=== PATIENT | female | born 1970 | race Caucasian/White ===

== ENCOUNTER 2018-05-24 09:00 | Outpatient (RCR) | payer BC, SELFPAY | END 2018-06-22 08:34 | disposition home or self-care (01) | LOC: PT 09:00 | PROVIDERS: Visit Provider Family Medicine | DX: M79.7 Fibromyalgia (principal) | CPT/HCPCS: 97033; 97110; 97163 ==

== ENCOUNTER 2018-11-23 16:30 | Outpatient (RCR) | payer BC, SELFPAY | END 2018-11-23 16:35 | disposition home or self-care (01) | LOC: PT 16:30 | PROVIDERS: Visit Provider Nurse Practitioner | DX: R42 Dizziness and giddiness (principal) | CPT/HCPCS: 97010; 97012; 97014; 97110; 97140; 97163; G0283 ==

== ENCOUNTER 2020-06-04 09:00 | Outpatient (RCR) | payer BC, SELFPAY | END 2020-06-12 11:47 | disposition home or self-care (01) | LOC: PT.CARL 09:00 | PROVIDERS: Visit Provider Nurse Practitioner Family | DX: M54.31 Sciatica, right side (principal) | CPT/HCPCS: 97010; 97012; 97014; 97110; 97140; 97163; 97164; G0283 ==

== ENCOUNTER → 2020-07-31 13:11 | Outpatient (POV) | payer BC, SELFPAY ==
[2020-07-31 15:05] VITALS: BP 133/81; PULSE 77; RESP 18; TEMP 35.7; O2SAT 96; BMI 42.7
--- NOTE | 2020-07-31 15:14 | HMH.PMCON ---
Assessment and Plan (1) Degenerative joint disease of cervical spine Current visit: Yes Status: Chronic Category: Medical Code(s): M47.812 - Spondylosis without myelopathy or radiculopathy, cervical region (2) Cervical radiculopathy Current visit: Yes Status: Chronic Category: Medical Code(s): M54.12 - Radiculopathy, cervical region (3) Degenerative joint disease (DJD) of lumbar spine Current visit: Yes Status: Chronic Category: Medical Code(s): M47.816 - Spondylosis without myelopathy or radiculopathy, lumbar region (4) Lumbar radiculopathy Current visit: Yes Status: Chronic Category: Medical Code(s): M54.16 - Radiculopathy, lumbar region - Assessment and plan all Dx Assessment and Plan for all problems:: Patient does have some small herniated disks noted to her lumbar spine, however, Dr. De León did not feel that surgery was appropriate at this time. Patient is having worsening pain in her neck and low back. She does say, however, her neck is worse at this time. We will schedule the patient for cervical epidural steroid injection at C5-C6. She is not on any anticoagulation therapy. I did give the patient educational information regarding spinal cord stimulation and intrathecal therapy. We will plan to see her back in the clinic afterwards to reassess her symptoms. She has been instructed to contact clinic if she has any concerns for next appointment. The patient and I specifically discussed risk factors for COVID19. These risks include, but are not limited to age greater than 60, heart or lung disease, diabetes, immunosuppression, and travel. We also discussed NSAIDs may worsen COVID19 infection or symptoms. Patient should not use NSAIDs to treat COVID19 signs or symptoms. Patient was also informed that any type of corticosteroid of any form (oral or injection) will decrease the patient's immune system response and may increase the likelihood of COVID19 [address] symptoms[address] Babin has reviewed this note and agrees with this plan of care. This note was dictated using voice recognition software and make contain errors or omissions. HPI - Data of Consult Patient: new to practice Consult date: 07/31/20 Requesting Physician: Kianna Nolan APRN Primary Care Provider: Mayra Montalvo - Consult Narrative Reason for consult: Neck pain, low back pain, shoulder pain, leg pain with numbness and tinglin History of present illness: Ms. Anderson is a 49 year old female presents today for consultation for neck pain with radiation into bilateral shoulders as well as numbness and tingling in bilateral hands. She is also having chronic low back pain that is radiating into her right leg causing numbness and tingling into her feet, worse on the right. Patient has had surgical intervention in the past and says that her pain worsened after her surgery. She says that she also has a history of fibromyalgia. She tried taking Lyrica but had major side effects, and has also tried gabapentin however, she was not getting any relief. Patient says her pain is continuous and is not worsened by any type of movement. She says that she does work at [employer] and is having difficulty doing her job due to the pain. She rates her pain a 7 out of 10. She has tried physical therapy with no relief. She did follow-up with Dr. De León who did perform her surgery in the past on her neck, however, she was encouraged to follow-up with us for possible injective therapy. The patient says injections have not helped her in the past. She is not interested in oral medications. Patient I did discuss undergoing possible injective therapy since she has not had any injections since her surgery. She is in agreement. She was also interested in possible implanted devices if she does not get relief with the injections. She would like to postpone surgery as long as possible. Patient does have imaging of her cervical and lumbar spine. CC: Kianna Nolan,
== END ==
PROVIDERS: PCP Nurse Practitioner Family; Visit Provider Clinical Nurse Specialist Family Health
DX: M47.896 Other spondylosis, lumbar region (principal); M54.16 Radiculopathy, lumbar region; M47.892 Other spondylosis, cervical region; M54.12 Radiculopathy, cervical region
CPT/HCPCS: 99202

== ENCOUNTER 2020-08-22 10:03 | Day surgery (SDC) | payer BC, SELFPAY ==
[2020-08-22 11:37] VITALS: BP 130/80; PULSE 70; RESP 19; TEMP 36.2; O2SAT 100; BMI 43.4
[2020-08-22 12:00] VITALS: BP 148/77; PULSE 85; RESP 18; O2SAT 98
[2020-08-22 12:01] VITALS: BP 149/78; PULSE 85; RESP 18; O2SAT 98
--- NOTE | 2020-08-22 12:08 | HMH.PMPROC ---
- Procedure Date: 08/22/20 Time: 12:08 Anesthesiologist:: Danial Babin MD Complications:: None Pre-procedure Diagnosis:: Degenerative disc disease of cervical spine with cervical radiculopathy symptoms Post-procedure Diagnosis:: Same Indications for Procedure:: This patient is a pleasant 49-year-old white female who we are treating for neck pain with cervical radicular symptoms. Most of her pain is on the right side. She is not a surgical candidate according to Dr. De León. We will plan on a cervical epidural steroid injection today to help her with her pain symptoms. Procedure Details:: Cervical epidural steroid injection under fluoroscopy Informed consent was obtained and the risks and benefits of the procedure was explained to the patient. The patient was taken to the procedure room placed prone on the procedure table. The neck was prepped using ChloraPrep. The skin and subcutaneous tissues were anesthetized using lidocaine. I placed a 18-gauge epidural needle into the C5-C6 interspace and advanced using [id number] to air and fluoroscopic guidance. After confirmation of needle placement in the epidural space with dye, I injected 3 mL's lidocaine 1.5% and Depo-Medrol 80 mg. The patient tolerated the procedure well with no complications. Plan and Disposition:: We will follow-up with her in 2 weeks. Will reevaluate symptoms at that time.
[2020-08-22 12:15] VITALS: BP 155/93; PULSE 75; RESP 20; O2SAT 99
== END 2020-08-22 12:15 | disposition home or self-care (01) ==
LOC: SC.PAINP 10:04
PROVIDERS: PCP Nurse Practitioner Family; Visit Provider Anesthesiology
DX: M50.10 Cervical disc disorder with radiculopathy, unspecified cervical region (principal); E78.5 Hyperlipidemia, unspecified; Z86.79 Personal history of other diseases of the circulatory system; Z82.49 Family history of ischemic heart disease and other diseases of the circulatory system; F41.9 Anxiety disorder, unspecified; F32.9 Major depressive disorder, single episode, unspecified; G43.909 Migraine, unspecified, not intractable, without status migrainosus; Z90.49 Acquired absence of other specified parts of digestive tract
CPT/HCPCS: 62321; J1040; Q9966

== ENCOUNTER → 2020-09-11 13:05 | Outpatient (POV) | payer BC, SELFPAY ==
[2020-09-11 13:41] VITALS: BP 138/78; PULSE 85; RESP 18; O2SAT 98; BMI 42.7
--- NOTE | 2020-09-11 15:09 | HMH.PAINSOAP ---
[facility] Pain Management SOAP Note Subjective:: Patient is a 49-year-old white female who presents today for follow-up after a cervical epidural steroid injection. She has been treated for chronic neck and low back pain with cervical and lumbar radiculopathy symptoms. Patient reports that she did not get any relief at all following the cervical epidural steroid injection. She has back surgeries in the past. Patient says that she has had multiple rounds of injections in the past with no relief. At this point she is not interested in further injection therapy. Because the patient is having neck and low back pain, she is interested in intrathecal therapy. She did discuss this with her neurosurgeon who has recommended she discuss this as a feasible option for her pain. She does rate her pain an 8 out of 10. The patient has tried physical therapy for greater than 6 weeks along with continued home stretching program. She has tried using ice and heat therapies with no relief as well as oral medications in the past. He does continue with a home stretching program. Review of Systems General: No recent weight changes, no fever, no sleep disturbances Respiratory: No cough, no shortness of air, no recurring pulmonary infections Cardiovascular/peripheral vascular: No chest pain, no palpitations, no edema, no shortness of breath Gastrointestinal: No new onset incontinence, normal bowel movements reported Genitourinary: No new onset incontinence Musculoskeletal: Neck and low back pain, bilateral upper extremity and lower extremity pain Psychiatric: Normal mood/affect Neurological: [Denies weakness in extremities], [denies balance issues] Objective:: Physical exam General: Alert and oriented x3, no acute distress, pleasant and cooperative, [on room air] Lungs: Respirations even and unlabored, symmetrical chest expansion Eyes: PERRL Musculoskeletal: Flexion and extension of cervical and lumbar spine somewhat guarded secondary to pain, deep tendon reflexes normal, strength in upper and lower extremities [5/5], [abnormal gait noted] Neurological: Speech clear, product info specialist equal, no gross sensory deficit Assessment:: Degenerative disc disease lumbar spine with lumbar radiculopathy symptoms, degenerative disc disease cervical spine with cervical radiculopathy symptoms Plan:: Patient has tried all conservative therapies and failed. She still continues to have significant pain. She now did discuss possible intrathecal therapy at her last visit. She would like to undergo psychological evaluation to see if she is an appropriate candidate for intrathecal therapy. We will schedule her for psychological evaluation and see her back in the clinic afterwards to reassess her symptoms and discuss further plan of care. She was given extensive educational information regarding intrathecal therapy. She has been instructed to contact clinic if she has any concerns before her next appointment. The patient and I specifically discussed risk factors for COVID19. These risks include, but are not limited to age greater than 60, heart or lung disease, diabetes, immunosuppression, and travel. We also discussed NSAIDs may worsen COVID19 infection or symptoms. Patient should not use NSAIDs to treat COVID19 signs or symptoms. Patient was also informed that any type of corticosteroid of any form (oral or injection) will decrease the patient's immune system response and may increase the likelihood of COVID19 [address] Babin has reviewed this note and agrees with this plan of care. This note was dictated using voice recognition software and make contain errors or omissions. [facility] History I have reviewed the patient's past medical history: Yes Medical History: Reports:: Aneurysm (aortic), Hyperlipidemia Denies:: Cancer, Diabetes Mellitus Type 1, Diabetes Mellitus Type 2, MRSA, Seizures *Have you ever received a pneumonia vaccine?: Yes *Have you received a flu
== END ==
PROVIDERS: PCP Nurse Practitioner Family; Visit Provider Clinical Nurse Specialist Family Health
DX: M51.16 Intervertebral disc disorders with radiculopathy, lumbar region (principal); M50.10 Cervical disc disorder with radiculopathy, unspecified cervical region
CPT/HCPCS: 99212

== ENCOUNTER → 2020-10-13 10:41 | Outpatient (POV) | payer BC, SELFPAY ==
[2020-10-13 11:11] VITALS: BP 147/85; PULSE 93; RESP 18; TEMP 36.8; O2SAT 99; BMI 42.7
--- NOTE | 2020-10-13 11:30 | P.CONS_ITS ---
[facility] Pain Management SOAP Note Subjective:: Patient is a pleasant 50-year-old white female who presents today for follow-up after psychological evaluation. She is been treated for chronic neck pain and low back pain. Patient has both cervical and lumbar radiculopathy symptoms. Patient rates her pain today an 8 out of 10. Patient reports that she did not get any relief from epidural injections. She has had surgery in the past. She had multiple rounds of injections with no relief. Patient is interested in intrathecal therapy. Patient psychological evaluation did determine that she needs continual therapy which she has begun. Patient is also currently partaking in marijuana use on a regular basis. Patient since her psychological evaluation has decreased this we had a long discussion in regards to realistic expectations and also the need to come off prior to an intrathecal pain pump trial. She understands. I discussed with her that we will need 8 weeks of appropriate drug screens. ROS General: no recent weight change, no fever, no sleep disturbances Respiratory: no cough, no shortness of air, no recurring pulmonary infections Cardiovascular/Peripheral Vascular: No chest pain, No palpitations, no edema, no shortness of breath. Gastrointestinal: no new onset incontinence, normal bowel movements reported Genitourinary: no new onset incontinence Musculoskeletal: Back pain, leg pain, neck pain, arm pain Psychiatric: normal mood/ affect Neurological: [denies new onset weakness in extremities], [denies new onset balance issues] Objective:: Physical Exam General: Alert and oriented x3, no acute distress, pleasant and cooperative, [on room air] Lungs: Resps E/U, Symmetrical chest expansion, Eyes: PERRL Musculoskeletal: Flexion and extension of lumbar and cervical spine somewhat guarded secondary to pain, deep tendon reflexes normal, strength in upper and lower extremities [5/5], [abnormal gait noted] Neurological: speech clear, safemaker equal, no gross sensory deficits Assessment:: Postlaminectomy syndrome, degenerative disc disease lumbar spine lumbar radiculopathy, degenerative disc disease cervical spine cervical radiculopathy symptoms Plan:: We will get a baseline drug screen today. We will call her in randomly within the next 2 months. If patient has all appropriate drug screens we will move forward with an intrathecal pain pump trial. Patient otherwise psychologically appropriate. Dr. Babin has reviewed this note and agrees with this plan of care. This note was dictated using voice recognition software and may contain errors or omissions [facility] History I have reviewed the patient's past medical history: Yes Medical History: Reports:: Aneurysm (aortic), Hyperlipidemia Denies:: Cancer, Diabetes Mellitus Type 1, Diabetes Mellitus Type 2, MRSA, Seizures *Have you ever received a pneumonia vaccine?: Yes *Have you received a flu vaccine this season?: Yes Other Medical History: Reports: Thyroid Disease. Denies: Blood Transfusion Reaction Other Surgeries: Yes: Appendectomy, Cholecystectomy, Hysterectomy-Total, Other (L 4-5 spinal fusion) Amputation: No Fractures: No - *Social History Smoking Status: Never smoker Alcohol Intake: never Substance Use Type: marijuana *Occupational Status:: other Housing: house Household Members: spouse *Travel in the last 8 weeks: None Family Hx:: Unable to obtain
== END ==
PROVIDERS: PCP Nurse Practitioner Family; Visit Provider Clinical Nurse Specialist Family Health
DX: M96.1 Postlaminectomy syndrome, not elsewhere classified (principal); M51.16 Intervertebral disc disorders with radiculopathy, lumbar region; M50.10 Cervical disc disorder with radiculopathy, unspecified cervical region
CPT/HCPCS: 99212

== ENCOUNTER → 2020-12-29 10:46 | Outpatient (POV) | payer BC, SELFPAY ==
[2020-12-29 11:23] VITALS: BP 133/85; PULSE 74; RESP 18; O2SAT 98; BMI 43.7
--- NOTE | 2020-12-29 12:41 | HMH.PAINSOAP ---
[facility] Pain Management SOAP Note Subjective:: Patient is a pleasant 50-year-old white female who presents today for follow-up. Patient is being treated for chronic neck and low back pain. Patient also has lumbar and cervical radiculopathy symptoms she rates her pain a 5 out of 10. Patient has had epidural injections in the past with no relief. She is had surgery in the past with no relief. Patient's had multiple rounds of injection therapy. Patient has had physical therapy, medications. Patient had an appropriate psychological event evaluation she is a candidate for intrathecal therapy she was testing positive for THC she has now had multiple negative tests. And over 8 weeks of appropriate drug screens. We will move forward with a intrathecal pain pump trial. ROS General: no recent weight change, no fever, no sleep disturbances Respiratory: no cough, no shortness of air, no recurring pulmonary infections Cardiovascular/Peripheral Vascular: No chest pain, No palpitations, no edema, no shortness of breath. Gastrointestinal: no new onset incontinence, normal bowel movements reported Genitourinary: no new onset incontinence Musculoskeletal: Back pain, neck pain, arm pain, leg pain Psychiatric: normal mood/ affect Neurological: [denies new onset weakness in extremities], [denies new onset balance issues] Objective:: Physical Exam General: Alert and oriented x3, no acute distress, pleasant and cooperative, [on room air] Lungs: Resps E/U, Symmetrical chest expansion, Eyes: PERRL Musculoskeletal: Flexion and extension of lumbar spine somewhat guarded secondary to pain, deep tendon reflexes normal, strength in upper and lower extremities [5/5], antalgic gait noted Neurological: speech clear, airport tower controller equal, no gross sensory deficits Assessment:: Degenerative disc disease lumbar spine lumbar radiculopathy, postlaminectomy syndrome, degenerative disc disease cervical spine cervical radiculopathy Plan:: We will set the patient up for an intrathecal pain pump trial. I discussed the risks and benefits with her she would like to proceed she is not on any anticoagulation therapy. Follow-up with her after this reassess her symptoms at that time she has had a appropriate psychological evaluation. Dr. Babin has reviewed this note and agrees with this plan of care. This note was dictated using voice recognition software and may contain errors or omissions [facility] History I have reviewed the patient's past medical history: Yes Medical History: Reports:: Aneurysm (aortic), Hyperlipidemia Denies:: Cancer, Diabetes Mellitus Type 1, Diabetes Mellitus Type 2, MRSA, Seizures *Have you ever received a pneumonia vaccine?: Yes *Have you received a flu vaccine this season?: Yes Other Medical History: Reports: Thyroid Disease. Denies: Blood Transfusion Reaction Other Surgeries: Yes: Appendectomy, Cholecystectomy, Hysterectomy-Total, Other (L 4-5 spinal fusion) Amputation: No Fractures: No - *Social History Smoking Status: Never smoker Alcohol Intake: never Substance Use Type: marijuana *Occupational Status:: other Housing: house Household Members: spouse *Travel in the last 8 weeks: None Family Hx:: Unable to obtain
== END ==
PROVIDERS: PCP Nurse Practitioner Family; Visit Provider Clinical Nurse Specialist Family Health
DX: M51.16 Intervertebral disc disorders with radiculopathy, lumbar region (principal); M96.1 Postlaminectomy syndrome, not elsewhere classified; M50.10 Cervical disc disorder with radiculopathy, unspecified cervical region
CPT/HCPCS: 99212; G0463

== ENCOUNTER → 2021-01-02 08:16 | Day surgery (SDC) | payer BC, SELFPAY ==
[2021-01-02] VITALS (9 sets, daily range): BP systolic 121–169; BP diastolic 63–87; PULSE 75–84; RESP 18–20; TEMP 37; O2SAT 97–99; BMI 43.5
--- NOTE | 2021-01-02 09:30 | P.PCN_ITS ---
- Procedure Date: 01/02/21 Time: 09:30 Anesthesiologist:: Danial Babin MD Complications:: None Pre-procedure Diagnosis:: Degenerative disc disease of the cervical spine with cervical radiculopathy symptoms. Postlaminectomy syndrome of lumbar spine with lumbar radiculopathy symptoms. Post-procedure Diagnosis:: Same Indications for Procedure:: This patient is a pleasant 50-year-old white female who we are treating for neck pain and low back pain. Patient has degenerative disc disease of the cervical spine with cervical radiculopathy symptoms. The patient has postlaminectomy syndrome lumbar spine with lumbar radiculopathy symptoms. Drug screen and [place] are all appropriate. Patient presents for pump trial to see if this helps with her neck and low back pain. This will be with intrathecal fentanyl. Patient has had a successful psychological evaluation. She is also failed all previous conservative therapy including injections, oral medications and physical therapy. She is also not a candidate for any further surgery. Procedure Details:: Pain pump trial Informed consent was obtained and the risk and benefits of the procedure was explained to the patient. The patient was taken to the procedure room and placed prone on the procedure table. Patient was prepped and draped in sterile fashion. C-arm fluoroscopy was used to view the lumbar spine. The skin and subcutaneous tissues were anesthetized using lidocaine. I placed a 18-gauge spinal needle into the L4-5 interspace and advanced until clear CSF was obtained. After this intrathecal catheter was inserted and advanced very easily to the L1 vertebral body. The needle was withdrawn. We were able to freely withdraw clear CSF through the catheter. We then injected intrathecal fentanyl single shot bolus of 25 mcg followed by saline and followed by the previous CSF that was withdrawn. The needle and catheter were then removed and a Band-Aid was placed. Patient tolerated the procedure well with no complications. We reevaluated the patient after 30 minutes to 1 hour. She was also reassessed by physical therapy. Patient had 90 to 100% relief of her pain symptoms. Neck pain and low back pain were much better. She was much more functional. This was a successful trial. She had no side effects. She was proceed with permanent placement. We will plan on permanent placement with intrathecal morphine 5 mg/mL to start at 0.25 mg/day. Catheter tip will be at the T8 vertebral body. We will have her see Dr. Charlotte more for permanent placement pump evaluation. Plan and Disposition:: We will have her see Dr. Joshi for permanent pain pump evaluation. We will plan on permanent pump with intrathecal morphine 5 mg/mL to start at 0.25 mg/day. Catheter tip will be at the T8 vertebral body to help with neck pain and low back pain.
--- NOTE | 2021-01-02 11:19 | PC.NURSE ---
0905-physical therapist at bedside to perform assessment 0935-pt returned to bay, accompanied by nursing staff. VSS, rates pain a 4 on scale of 0-10. pt offered breakfast tray and is agreeable a this time. 0950-pt sitting up in chair, eating breakfast. no c/o pain, VSS, injeciton site WNL. no needs or concerns at this time 1005-pt sitting up in chair, VSS, no c/o pain. injection site remains covered with bandaid. site free from s/s infection. pt without needs or concerns at this time 1020-pt resting in chair, VSS, no c/o pain, injection site wnl, without needs or concerns a this time. 1035-pt sitting in chair. VSS, no c/o pain. injection site wnl. pt without needs or concerns at this time. 1050-MD at bedside 1100-physical therapist at bedside to perform evaluation.
== END ==
PROVIDERS: PCP Nurse Practitioner Family; Visit Provider Anesthesiology
DX: M50.10 Cervical disc disorder with radiculopathy, unspecified cervical region (principal); M96.1 Postlaminectomy syndrome, not elsewhere classified; M54.16 Radiculopathy, lumbar region; G43.909 Migraine, unspecified, not intractable, without status migrainosus; F41.9 Anxiety disorder, unspecified; F32.9 Major depressive disorder, single episode, unspecified; Z88.6 Allergy status to analgesic agent; Z86.79 Personal history of other diseases of the circulatory system; Z79.899 Other long term (current) drug therapy
CPT/HCPCS: 62323; 96365

== ENCOUNTER → 2021-01-12 16:06 | Outpatient (CLI) | payer BC, SELFPAY ==
[2021-01-12 16:38] LABS: Basophils % 0.5 % (0.1-2.0); Eosinophils # 0.2 K/mm3 (0.0-0.4); Eosinophils % 2.6 % (0.1-12.0); Hematocrit 44.7 % (37.0-47.0); Hemoglobin 14.8 g/dL (12.2-16.2); Lymphocytes # 2.1 K/mm3 (0.7-4.5); Mean Corpuscular HGB Conc 33.2 g/dL (31.8-35.4); Mean Corpuscular Hemoglobin 28.8 pg (27.0-31.2); Mean Corpuscular Volume 86.8 fl (81-99); Mean Platelet Volume 8.6 fl (7.4-10.4); Monocytes # 0.6 K/mm3 (0.1-1.0); Monocytes % 7.3 % (1.7-9.3); Neutrophils # 4.9 K/mm3 (1.8-7.8); Neutrophils % 62.6 % (37.0-80.0); Platelet Count 252 K/mm3 (142-424); Red Blood Count 5.14 M/mm3 (4.20-5.40); White Blood Count 7.8 K/mm3 (4.8-10.8)
[2021-01-12 18:06] LABS: Chloride 104 mmol/L (98-107); Sodium 139 mmol/L (136-145)
[2021-01-12 18:07] LABS: Potassium 4.4 mmoL/L (3.5-5.1)
[2021-01-12 18:09] LABS: Blood Urea Nitrogen 16 mg/dl (7-17); Estimated Glomerular Filt Rate 77 ml/min (>60); GFR (African American) 93 ML/MIN (>60)
[2021-01-12 18:10] LABS: Anion Gap 10.4 mEq/L (5-15); Calcium 9.7 mg/dl (8.4-10.2); Carbon Dioxide 29 mmol/L (22.0-30.0); Glucose 147 mg/dl (74-100)
[2021-01-12 18:15] LABS: Coronavirus 19 IgG Antibody Negative (Negative); Coronavirus 19 IgM Antibody Negative (Negative)
[2021-01-12 19:36] LABS: Amphetamine/Metha Screen,Urine Negative ng/ml (<1000)
[2021-01-12 19:37] LABS: Barbiturates Screen,Urine Negative ng/ml (<200); Benzodiazepines Screen,Urine Negative ng/ml (<200)
[2021-01-12 19:38] LABS: Cannabinoid Screen,Urine Positive ng/ml (<50)
[2021-01-12 19:39] LABS: Cocaine Screen,Urine Negative ng/ml (<300); Methadone Screen,Urine Negative ng/ml (<300)
[2021-01-12 19:40] LABS: Opiate Screen,Urine Negative ng/ml (<300); Phencyclidine Screen,Urine Negative ng/ml (<25)
== END ==
PROVIDERS: Visit Provider Anesthesiology
DX: Z01.818 Encounter for other preprocedural examination (principal); Z20.822 Contact with and (suspected) exposure to COVID-19; M51.36 Other intervertebral disc degeneration, lumbar region
CPT/HCPCS: 36415; 80048; 80305; 85025; 86328

== ENCOUNTER 2021-01-14 06:59 | Day surgery (SDC) | payer BC, SELFPAY ==
[2021-01-12 14:51] VITALS: BMI 43.7
[2021-01-14] VITALS (7 sets, daily range): BP systolic 148–165; BP diastolic 72–93; PULSE 73–85; RESP 18; TEMP 36.1–37.2; O2SAT 98–100
--- NOTE | 2021-01-14 10:00 | P.PN_ITS ---
[facility] Anesthesia Checklist - Patient Identification Patient Identification: Arm Band - Structural Data Admitted From: Home Planned Operative Procedure/s: pain pump Consent for Planned Operative Procedure(s) Verified: Yes Verified Documents: Surgical Consent - Additional verifications Anesthesia Reactions: No Hx Blood Transfusions: No Blood Transfusion Reaction: No - Anesthesia Plan Anesthesia Risk discussed: Yes ASA Class: III Anesthesia Type: Local & MAC [facility] History I have reviewed the patient's past medical history: Yes Medical History: Reports:: Aneurysm, Hyperlipidemia Denies:: Cancer, Diabetes Mellitus Type 1, Diabetes Mellitus Type 2, Internal Pacemaker, MRSA, Seizures *Have you ever received a pneumonia vaccine?: No *Have you received a flu vaccine this season?: Yes Other Medical History: Reports: Thyroid Disease. Denies: Blood Transfusion Reaction Anesthesia experience/problems:: none Other Surgeries: Yes: Appendectomy, Cholecystectomy, Hysterectomy-Total, Other (L 4-5 spinal fusion). No: Pacemaker Amputation: No Fractures: No - *Social History Last grade of school completed: High school graduate Smoking Status: Never smoker Alcohol Intake: never Substance Use Type: marijuana *Occupational Status:: employed Housing: house Household Members: spouse *Travel in the last 8 weeks: None Family Hx:: Unable to obtain
--- NOTE | 2021-01-14 10:49 | HMH.OPNOTE ---
Date of procedure: 01/14/21 Pre-op Diagnosis:: Degenerative disc disease of cervical spine with cervical radiculopathy symptoms. Postlaminectomy syndrome lumbar spine with lumbar radiculopathy symptoms. Post-op Diagnosis:: Same Procedure performed:: Intrathecal catheter placement with tunneling for permanent intrathecal pain pump Surgeon:: Danial Babin MD MILL HELPER:: Other Anesthesia: MAC Estimated blood loss (mL): 5 Clinical Note:: This patient is a pleasant 50-year-old white female who we are treating for neck pain and low back pain with postlaminectomy syndrome of lumbar spine. Patient has degenerative disc disease of the cervical spine lumbar spine as well. Her Darwin is appropriate. This morning her drug screen was positive for cannabinoids. The patient did admit to having a brownie with THC. I told the patient that she cannot mix THC with her intrathecal narcotics. We will continue to drug screen her and if positive again we will not fill her pump. She has failed all previous conservative therapy including surgery, oral medications, injections and physical therapy. She has had a successful psychological evaluation. She is also had a successful intrathecal pump trial. She was 80 to 90% better. She presents for permanent placement of intrathecal pain pump today. We will place catheter at T8 to help with her neck pain and low back pain. Operative findings:: None Operative note:: Informed consent was obtained and the risk and benefits of the procedure were explained to the patient. Patient was taken to the operating room placed prone on the procedure table. She was prepped and draped in sterile fashion. C-arm fluoroscopy was used to view the lumbar spine. The skin and subcutaneous tissues adjacent to the L5-S1 interspace were anesthetized using lidocaine. I made an incision and dissected down to the lumbar paraspinous fascia. A 14-gauge spinal needle was inserted and advanced into the L5-S1 interspace until clear CSF was obtained. After this intrathecal catheter was inserted and advanced very easily to the T8 vertebral body. The stylette of the catheter and the needle were withdrawn. The catheter secured to the fascia with 2 anchoring devices and 2-0 Prolene. I prepared the pump with saline. We were not able to get intrathecal morphine from [facility] due to weather conditions. Dr. Kimbrough more prepared the pump pocket. I tunneled the catheter from the back to the pump pocket and attached the catheter to the pump. We were able to freely withdraw clear CSF and saline through the side-port of the pump. Both incisions were irrigated with bacitracin solution. Both incisions were then closed with 2-0 Vicryl followed by 4-0 nylon. A wound VAC was placed over both incisions. An abdominal binder was placed. Patient was taken recovery stable condition. Patient tolerated the procedure well with no complications. Patient was started with saline infusion. We will refill the pump next week when we get medication. Patient was discharged home neurologically intact. She was given some postop pain medication. We will give her [place] 5 mg 1 tablet every 4 to 6 hours. We will give her 20 tablets. Plan and disposition: We will follow-up with her in 1 week. At that time we will refill her pump with intrathecal morphine 5 mg/mL and started at 0.25 mg/day. The wound VAC will be removed at that time. We will follow-up in 2 weeks for wound check and adjustments if needed. We will also remove her sutures at that time. Patient has any problems or questions she is to call us back in the pain clinic. Condition: stable Disposition: PACU Complications:: None
--- NOTE | 2021-01-14 10:54 | P.CONS_ITS ---
Assessment and Plan - Assessment and plan all Dx Assessment and Plan for all problems:: Impression-degenerative disc disease of the lumbar spine with radiculopathy, postlaminectomy syndrome Plan-placement of intrathecal pain pump system today HPI - Data of Consult Patient: new to practice Consult date: 01/14/21 Requesting Physician: Danial Babin MD Primary Care Provider: Mayra Montalvo - Consult Narrative Reason for consult: Back pain History of present illness: Ms. Anderson is a 50 year old female with chronic back pain who is had back surgery in the past. She had a intrathecal pain pump trial with significant improvement she comes in today for placement of that system CC: Danial Babin MD [facility] History I have reviewed the patient's past medical history: Yes Medical History: Reports:: Aneurysm, Hyperlipidemia Denies:: Cancer, Diabetes Mellitus Type 1, Diabetes Mellitus Type 2, Internal Pacemaker, MRSA, Seizures *Have you ever received a pneumonia vaccine?: No *Have you received a flu vaccine this season?: Yes Other Medical History: Reports: Thyroid Disease. Denies: Blood Transfusion Reaction Comment:: Illnesses, hyperlipidemia, aneurysm, hypothyroidism, anxiety and depression, migraine headaches, chronic back pain Anesthesia experience/problems:: none Other Surgeries: Yes: Appendectomy, Cholecystectomy, Hysterectomy-Total, Other (L 4-5 spinal fusion). No: Pacemaker Amputation: No Fractures: No Comment: Operations-lumbar laminectomy, hysterectomy, cholecystectomy, appendectomy - *Social History Last grade of school completed: High school graduate Smoking Status: Never smoker Alcohol Intake: never Substance Use Type: marijuana *Occupational Status:: employed Housing: house Household Members: spouse *Travel in the last 8 weeks: None Family Hx:: Unable to obtain Review of Systems - Review of Systems Review of systems:: pertinent systems reviewed and negative unless documented below Meds Home Medications Medication Instructions Recorded Confirmed Type Buspirone HCl [Buspar 10mg 10 mg PO BID 12/31/20 01/12/21 History tablet] Celecoxib 100 mg PO DAILY 12/31/20 01/12/21 History Duloxetine HCl 40 mg PO DAILY 12/31/20 01/12/21 History Ergocalciferol (Vitamin D2) 50,000 units PO WEEKLY 12/31/20 01/12/21 History [Drisdol 50,000 units (1.25mg) capsule] Escitalopram Oxalate 20 mg PO DAILY 12/31/20 01/12/21 History Levothyroxine Sodium 125 mcg PO DAILY 12/31/20 01/12/21 History [Levothyroxine 125mcg (0.125mg) Tab] Atorvastatin Calcium [Lipitor 40mg 40 mg PO HS 01/02/21 01/12/21 History Tab] Allergies Allergy/AdvReac Type Severity Reaction Status Date / Time oxycodone [From PERCOCET] Allergy Mild NA-NAUSEA/V Verified 01/02/21 08:21 OMITING Objective Vital signs: Temp Pulse Resp BP Pulse Ox 97.0 F L 85 18 157/72 H 98 01/14/21 07:30 01/14/21 07:30 01/14/21 07:30 01/14/21 07:30 01/14/21 07:30 no acute distress - *Routine Respiratory Exam Present: CTA bilaterally - *Routine Cardiovascular Exam Present: RRR - *Routine Abdominal Exam Present: soft
--- NOTE | 2021-01-14 10:58 | HMH.OPNOTE ---
Date of procedure: 01/14/21 Pre-op Diagnosis:: Degenerative disc disease of the lumbar spine with radiculopathy, postlaminectomy syndrome Post-op Diagnosis:: Same Procedure performed:: Placement of pain pump generator Surgeon:: John Joshi MD CONSTRUCTION FLAGGER:: Rajeev Larson, Brad Rizzo, Cirilo Carrero, Devin Ribeiro, Other Anesthesia: MAC, local Estimated blood loss (mL): 5 Operative findings:: Not applicable Operative note:: Patient was placed prone on the operating table and her back and flank regions were prepped and draped in sterile fashion. Paraspinal incision was made by Dr. Arnold which an intrathecal cath was passed into the intrathecal space to the area desired by Dr. Khan. Catheter fixed the paraspinal fascia with fixation devices and 2-0 Prolene sutures. A right flank incision was then made orders made a pocket for placement of the reservoir. The catheter was passed from the paraspinal incision to the pocket incision utilizing the tunneling device. The catheter connected the generator and placed in the pocket. CSF was aspirated from the generator noting patency of the system. Both incisions irrigated with antibiotic solution. Subcutaneous tissues closed with 2-0 Vicryl. Skin closed with stitches of 4-0 nylon. Wound VAC dressings and binder is applied to the wound. The patient tolerated procedure well and was taken recovery in stable condition. Upon recovery the patient will be discharged home will follow up in 1 week remove the wound VAC system in 2 weeks for removal of the stitches. Antibiotic x1 week per protocol. The patient tolerated the procedure well Condition: stable Disposition: PACU Complications:: None
== END 2021-01-14 12:03 | disposition home or self-care (01) ==
LOC: OR 07:00
PROVIDERS: PCP Nurse Practitioner Family; Visit Provider Anesthesiology
PROC: (CPT 62350; principal; 2021-01-14 08:45)
DX: M50.10 Cervical disc disorder with radiculopathy, unspecified cervical region (principal); M96.1 Postlaminectomy syndrome, not elsewhere classified; M54.16 Radiculopathy, lumbar region; E78.5 Hyperlipidemia, unspecified; I72.9 Aneurysm of unspecified site; E07.9 Disorder of thyroid, unspecified; Z90.49 Acquired absence of other specified parts of digestive tract; F12.90 Cannabis use, unspecified, uncomplicated; Z82.49 Family history of ischemic heart disease and other diseases of the circulatory system
CPT/HCPCS: 62350; 62362; 96374; C1755; C1772; J3370

== ENCOUNTER → 2021-01-22 13:11 | Outpatient (CLI) | payer BC, SELFPAY ==
[2021-01-22 13:59] LABS: Barbiturates Screen,Urine Negative ng/ml (<200)
[2021-01-22 14:00] LABS: Amphetamine/Metha Screen,Urine Negative ng/ml (<1000); Benzodiazepines Screen,Urine Negative ng/ml (<200)
[2021-01-22 14:01] LABS: Cannabinoid Screen,Urine Negative ng/ml (<50)
[2021-01-22 14:02] LABS: Cocaine Screen,Urine Negative ng/ml (<300)
[2021-01-22 14:03] LABS: Methadone Screen,Urine Negative ng/ml (<300); Opiate Screen,Urine Negative ng/ml (<300)
[2021-01-22 14:04] LABS: Phencyclidine Screen,Urine Negative ng/ml (<25)
== END ==
PROVIDERS: Visit Provider Anesthesiology
DX: Z79.899 Other long term (current) drug therapy (principal)
CPT/HCPCS: 80305

== ENCOUNTER 2021-01-22 13:28 | Day surgery (SDC) | payer BC, SELFPAY ==
[2021-01-22 14:20] VITALS: BP 135/75; PULSE 99; RESP 18; O2SAT 98; BMI 40.1
[2021-01-22 14:30] VITALS: BP 139/80; PULSE 110; RESP 18
[2021-01-22 14:35] VITALS: BP 140/89; PULSE 109; RESP 18; TEMP 36.8; O2SAT 99
--- NOTE | 2021-01-22 16:19 | HMH.PMPROC ---
- Procedure Date: 01/22/21 Time: 16:19 Anesthesiologist:: Kianna Nolan APRN Complications:: None Pre-procedure Diagnosis:: Degenerative disc disease lumbar spine with lumbar radiculopathy symptoms, postlaminectomy syndrome lumbar spine Post-procedure Diagnosis:: Same Indications for Procedure:: Patient is a 50-year-old white female who presents today for intrathecal pain pump refill. She recently underwent pain pump insertion on 01/14/2021. Unfortunately, at that time her medication for intrathecal pump was not available due to weather. She is here today to have medication placed in her intrathecal pump At the time of implant, saline was placed in the intrathecal pain pump. Patient rates her pain a 5 out of 10 today. We will fill the intrathecal pump with morphine 5 mg per mill and to start at 0.25 mg/day. Physical exam General: Alert and oriented x3, no acute distress, pleasant and cooperative, [on room air] Lungs: Respirations even and unlabored, symmetrical chest expansion Eyes: PERRL Musculoskeletal: Flexion and extension of lumbar spine somewhat guarded secondary to pain, deep tendon reflexes normal, strength in upper and lower extremities [5/5], [abnormal gait noted] Neurological: Speech clear, home mission worker equal, no gross sensory deficit Integumentary: Incision well approximated, no redness, no drainage, no edema noted to site. Sutures intact and open to air Procedure Details:: Informed consent was obtained and the risk and benefits of the procedure were explained to the patient. The patient was taken to the procedure room where noninvasive monitoring was placed including noninvasive blood pressure cuff and pulse oximeter. Patient's pump was interrogated. The area over the pump was cleansed with chlorhexidine as a cleansing solution. In sterile fashion the pump was accessed with a 22-gauge needle. Approximately 11 mls of the normal saline solution was removed and discarded appropriately. The pump was then refilled with 20 mL's of morphine 5 mg/mL. The needle was withdrawn and a bandage was placed over the puncture site. The infusion rate was reprogrammed at started at morphine at 0.25 mg/day. The patient tolerated well with no complication. Plan and Disposition:: We will see the patient back for suture removal in 2 weeks. We will plan to follow-up with her at that time and schedule her intrathecal refill date as well. She has been instructed to contact clinic if she has any concerns before next appointment. The patient and I specifically discussed risk factors for COVID19. These risks include, but are not limited to age greater than 60, heart or lung disease, diabetes, immunosuppression, and travel. We also discussed NSAIDs may worsen COVID19 infection or symptoms. Patient should not use NSAIDs to treat COVID19 signs or symptoms. Patient was also informed that any type of corticosteroid of any form (oral or injection) will decrease the patient's immune system response and may increase the likelihood of COVID19 infection and symptoms.
[2021-01-22 16:52] VITALS: BP 139/86; PULSE 109; RESP 18; O2SAT 99
== END 2021-01-22 14:50 | disposition home or self-care (01) ==
LOC: SC.PAINP 13:28
PROVIDERS: PCP Nurse Practitioner Family; Visit Provider Clinical Nurse Specialist Family Health
DX: M51.16 Intervertebral disc disorders with radiculopathy, lumbar region (principal); M96.1 Postlaminectomy syndrome, not elsewhere classified
CPT/HCPCS: 62370

== ENCOUNTER → 2021-02-05 14:50 | Outpatient (POV) | payer BC, SELFPAY ==
--- NOTE | 2021-02-05 15:23 | HMH.PMPROC ---
- Procedure Date: 02/05/21 Time: 15:23 Anesthesiologist:: Gretta Kenny APRN Complications:: None Pre-procedure Diagnosis:: Degenerative disc disease lumbar spine lumbar radiculopathy back pain, hip pain, postlaminectomy syndrome Post-procedure Diagnosis:: Same Indications for Procedure:: Patient is a pleasant 50-year-old white female who presents today for intrathecal pain pump adjustment. Patient stitches have been removed overall she is doing well. Patient has recently fallen. Prior to this her pain was a 2 or 3 however she had a fall and it is now a 9 out of 10. We talked about a Depo-Medrol Dosepak she is interested in pursuing this. Patient is currently on morphine dose 0.25 mg/day. Patient's PTC will be set up today. She denies side effects to her medications. Procedure Details:: Physical Exam informed consent was obtained and the risk and benefits of the procedure were explained to the patient. The patient was taken to the procedure room where noninvasive monitoring was placed including noninvasive blood pressure cuff and pulse oximeter. Patient's pump was interrogated and reprogrammed. The infusion rate was kept at morphine 0.25 mg/day and her PTC was set up at 0.025 mg per bolus with an availability of 4 boluses per day.. The patient tolerated the procedure well. Plan and Disposition:: We will give the patient a Medrol Dosepak and see her back in 2 weeks reassess her symptoms at that time she has been instructed to call the office if she has any issues prior to her next appointment. Dr. Babin has reviewed this note and agrees with this plan of care. This note was dictated using voice recognition software and may contain errors or omissions
[2021-02-05 15:42] VITALS: BP 140/78; PULSE 74; RESP 18; O2SAT 98; BMI 43.7
== END ==
PROVIDERS: PCP Nurse Practitioner Family; Visit Provider Clinical Nurse Specialist Family Health
DX: M51.16 Intervertebral disc disorders with radiculopathy, lumbar region (principal); M96.1 Postlaminectomy syndrome, not elsewhere classified
CPT/HCPCS: 62368

== ENCOUNTER → 2021-02-19 12:42 | Outpatient (POV) | payer BC, SELFPAY ==
[2021-02-19 13:12] VITALS: BP 136/71; PULSE 92; RESP 18; O2SAT 98; BMI 43.7
--- NOTE | 2021-02-19 13:23 | HMH.PMPROC ---
- Procedure Date: 02/19/21 Time: 13:24 Anesthesiologist:: Gretta Kenny APRN Complications:: None Pre-procedure Diagnosis:: Degenerative disc disease lumbar spine lumbar radiculopathy, back pain, hip pain, postlaminectomy syndrome Post-procedure Diagnosis:: Same Indications for Procedure:: Patient is a pleasant 50-year-old white female who presents today for intrathecal pain pump adjustment. Patient overall doing well she still having some pain from her recent fall. She rates her pain a 6 out of 10. She would like an increase in her intrathecal infusion. She is currently on morphine 0.25 mg/day and denies side effects. Procedure Details:: Informed consent was obtained and the risk and benefits of the procedure were explained to the patient. The patient was taken to the procedure room where noninvasive monitoring was placed including noninvasive blood pressure cuff and pulse oximeter. Patient's pump was interrogated and reprogrammed. The infusion rate was increased to 0.3 mg morphine per day. The patient tolerated the procedure well. Plan and Disposition:: I will follow up with the patient in 2 weeks reassess her symptoms at that time she has been instructed to call the office if she has any issues prior to her next appointment. Dr. Babin has reviewed this note and agrees with this plan of care. This note was dictated using voice recognition software and may contain errors or omissions
== END ==
PROVIDERS: PCP Nurse Practitioner Family; Visit Provider Clinical Nurse Specialist Family Health
DX: M51.16 Intervertebral disc disorders with radiculopathy, lumbar region (principal); M25.559 Pain in unspecified hip; M96.1 Postlaminectomy syndrome, not elsewhere classified
CPT/HCPCS: 62368

== ENCOUNTER → 2021-03-05 14:03 | Outpatient (POV) | payer BC, SELFPAY ==
--- NOTE | 2021-03-05 | XR_ITS ---
PROCEDURE: XR KNEE RT 3V CLINICAL INDICATION: BILATERAL KNEE PAIN COMPARISON: CR [id number] KNEE-3 VIEWS-RT from 12/30/2015 FINDINGS: No fracture or dislocation. No lytic or blastic change. There is normal mineralization. There are mild osteoarthritic changes involving the lateral compartment with minimal spurring. Small calcific density is present within the soft tissues of the distal thigh medially and anteriorly unchanged Other findings:None. IMPRESSION: Minimal osteoarthritic change lateral compartment Dictated by: Paul Wu MD 03/05/2021 15:34 Paul Wu MD in [place] 03/05/2021 15:34
--- NOTE | 2021-03-05 | XR_ITS ---
PROCEDURE: XR KNEE LT 3V CLINICAL INDICATION: BILATERAL KNEE PAIN COMPARISON: CR KNEE3R KNEE-3 VIEWS-RT from 12/30/2015 FINDINGS: No fracture or dislocation. No lytic or blastic change. There is normal mineralization. Minimal osteoarthritic changes present involving the medial compartment. Other findings:None. IMPRESSION: Minimal osteoarthritis medial compartment Dictated by: Paul Wu MD 03/05/2021 15:35 Paul Wu MD in [place] 03/05/2021 15:35
[2021-03-05 14:40] VITALS: BP 125/88; PULSE 74; RESP 18; O2SAT 98; BMI 43.7
--- NOTE | 2021-03-05 14:45 | P.PCN_ITS ---
- Procedure Date: 03/05/21 Time: 14:45 Anesthesiologist:: Gretta Kenny APRN Complications:: None Pre-procedure Diagnosis:: Degenerative disc disease lumbar spine lumbar radiculopathy, postlaminectomy syndrome, back pain Post-procedure Diagnosis:: Same Indications for Procedure:: Patient is a pleasant 50-year-old white female who presents today for intrathecal pain pump adjustment. Patient is overall doing well. She is still having pain after a recent fall. She rates her pain a 6 out of 10 she would like an increase of her morphine. Patient is currently on a a intrathecal m orphine infusion of 0.3 mg of morphine a day. Patient is having some swelling however she is unsure if it is related to the pump. She has an appointment with her primary care physician to discuss this. I discussed with her that if she is having issues with the swelling and it is related to the intrathecal morphine we can switch her medications. She understands. She is also having bilateral knee pain will order x-rays for her knees. Procedure Details:: Informed consent was obtained and the risk and benefits of the procedure were explained to the patient. The patient was taken to the procedure room where noninvasive monitoring was placed including noninvasive blood pressure cuff and pulse oximeter. Patient's pump was interrogated and reprogrammed. The infusion rate was increased to 0.5 mg of morphine a day.. The patient tolerated the procedure well. Plan and Disposition:: Back at her next appointment reassess her at that time. She is good to be seen by her primary care physician to determine if she needs any intervention in regard to her swelling. If patient continues to have swelling we will move forward with a intrathecal pain pump medication change. Patient also will be ordered x-rays of her bilateral knees I will review this on Tuesday. Dr. Babin has reviewed this note and agrees with this plan of care. This note was dictated using voice recognition software and may contain errors or omissions
== END ==
PROVIDERS: PCP Nurse Practitioner Family; Visit Provider Clinical Nurse Specialist Family Health
DX: M51.16 Intervertebral disc disorders with radiculopathy, lumbar region (principal); M96.1 Postlaminectomy syndrome, not elsewhere classified
CPT/HCPCS: 62368; 73562

== ENCOUNTER 2021-03-23 16:51 | Emergency (ER) | payer BC, SELFPAY ==
[2021-03-23 17:34] VITALS: BP 143/89; PULSE 87; RESP 16; TEMP 37.1; O2SAT 98; BMI 44.6
--- NOTE | 2021-03-23 17:42 | XR_ITS ---
PROCEDURE INFORMATION: Exam: XR Left Knee Exam date and time: 03/23/2021 5:42 PM Age: 50 years old Clinical indication: Pain; Knee; Left TECHNIQUE: Imaging protocol: XR Left knee. Views: 3 views. COMPARISON: CR XR KNEE LT 3V 03/05/2021 2:46 PM FINDINGS: Bones/joints: There is no acute fracture. There is narrowing of the superior aspect of the patellofemoral joint. No knee joint effusion. Soft tissues: Normal. IMPRESSION: No acute fracture.
--- NOTE | 2021-03-23 17:46 | HMH.EDUTC ---
[facility] [place] Clinical Impression: Left knee pain Qualifiers: Chronicity: unspecified Qualified Code(s): M25.562 - Pain in left knee Disposition: Home, Self-Care Condition on Discharge: Good Instructions: DI for Knee Pain Additional Instructions: *weight bearing as tolerated *RICE, Rest the extremity, Ice 15-20 minutes 3-4 times daily, Compress- wear the robert wrap as discussed as much as possible to help reduce swelling and pain, Elevate the extremity when at rest *Robert wrap is for support and help control swelling, use it except in the shower. Be sure that is not to tight but not to loose either *Elevate when resting *Ibuprofen every 6-8 hours as needed for pain an inflammation. If need something more can take Tylenol in between doses of Ibuprofen to help Immediately follow up with your family doctor for new or worsening of symptoms, or no noticeable improvement over the next 3-5 days Use Walker to ambulate Call back to the [facility] for the official reading of your knee xray Return if needed Follow up with Family Doctor as scheduled Straight to ER if any life threatening symptoms Referrals: Mayra Montalvo [Primary Care Provider] - As needed Time of Disposition: 18:27 Medical Decision Making - Darwin Inquiry Pt receiving controlled substance: No Darwin was queried for this patient: No Vital Signs: 03/23/21 17:34 03/23/21 18:47 Temperature 98.8 F 98.8 F Temperature Source Oral Oral Pulse Rate 87 Pulse Rate [Right Brachial] 87 Respiratory Rate 16 16 Blood Pressure 143/89 H Blood Pressure [Right Arm] 143/89 H Blood Pressure Mean [Right Arm] 107 Blood Pressure Source Automatic Cuff Blood Pressure Source [Right Arm] Automatic Cuff Blood Pressure Position Sitting Blood Pressure Position [Right Arm] Sitting 02 Sat by Pulse Oximetry 98 Oxygen Delivery Method Room Air Room Air Orders (Tests/Meds): ORDERS Category Date Time Status XR knee LT 3V Stat Exams 03/23/21 17:42 Taken - Radiology Data #1 Image(s): Knee Image Reviewed: Yes I reviewed the patient's radiology image Preliminary Findings: No Fracture Seen [facility] [place] HPI - General Stated complaint: knees swollen Time Seen by Provider: 03/23/21 17:46 Mode of Arrival: Ambulatory Source of Information: Patient Limitations: No Limitations Description of Symptoms (Recalled from Triage Doc. by RN): PT COMPLAINS OF BILATERAL KNEE PAIN BUT PT REPORTS LEFT KNEE PAIN IS WORSE AND CAN FLOREZ PUT ANY PRESSURE ON IT. HEENT Symptoms (Recalled from RN notes): No Resp Symptoms (Recalled from RN notes): No Skin Symptoms (Recalled from RN notes): No MS Symptoms (Recalled from RN notes): Yes Functional Status (Recalled from RN notes): WNL - History of Present Illness Provider Complaint: Patient state that she has been having pain and swelling off and on in both knees for awhile State that she had xray on the due to having pain and was told that she has arthritis State that she has Morphine pump in from Dr crawford states that as she was walking out of her house earlier she had a sharp pain in her left knee and she is still having pain States that she has an appointment with her PCP on Tue but came in to get her left knee checked out - Related Data Home Medications Medication Instructions Recorded Confirmed Buspirone HCl [Buspar 10mg 10 mg PO BID 12/31/20 01/12/21 tablet] Celecoxib 100 mg PO DAILY 12/31/20 01/12/21 Duloxetine HCl 40 mg PO DAILY 12/31/20 01/12/21 Ergocalciferol (Vitamin D2) 50,000 units PO WEEKLY 12/31/20 01/12/21 [Drisdol 50,000 units (1.25mg) capsule] Escitalopram Oxalate 20 mg PO DAILY 12/31/20 01/12/21 Levothyroxine Sodium 125 mcg PO DAILY 12/31/20 01/12/21 [Levothyroxine 125mcg (0.125mg) Tab] Atorvastatin Calcium [Lipitor 40mg 40 mg PO HS 01/02/21 01/12/21 Tab] Previous Rx's Medication Instructions Recorded Sulfamethoxazole/Trimethoprim 1 each PO BID #14 tab 01/14/21 [Bactrim DS tablet] methylPREDNIS
[2021-03-23 18:47] VITALS: BP 143/89; PULSE 87; RESP 16; TEMP 37.1; O2SAT 98
== END 2021-03-23 18:50 | disposition home or self-care (01) ==
PROVIDERS: Emergency Provider Nurse Practitioner; PCP Nurse Practitioner Family
DX: M25.562 Pain in left knee (principal); F41.8 Other specified anxiety disorders; I10 Essential (primary) hypertension; E78.5 Hyperlipidemia, unspecified; E03.9 Hypothyroidism, unspecified; G43.709 Chronic migraine without aura, not intractable, without status migrainosus; Z88.5 Allergy status to narcotic agent; Z79.899 Other long term (current) drug therapy
CPT/HCPCS: 73562; 99202; G0463

== ENCOUNTER 2021-04-21 11:00 | Outpatient (RCR) | payer BC, SELFPAY | END 2021-04-30 13:58 | disposition home or self-care (01) | LOC: PT.CARL 11:00 | PROVIDERS: PCP Nurse Practitioner Family; Visit Provider Nurse Practitioner Family | DX: M25.562 Pain in left knee (principal) | CPT/HCPCS: 97010; 97110; 97116; 97163 ==

== ENCOUNTER 2021-06-08 14:05 | Day surgery (SDC) | payer BC, SELFPAY ==
[2021-06-08 14:25] VITALS: BP 146/86; PULSE 89; RESP 18; TEMP 36.4; BMI 44.0
[2021-06-08 14:43] VITALS: BP 167/96; PULSE 87; RESP 18; O2SAT 98
[2021-06-08 14:45] VITALS: BP 154/98; PULSE 85; RESP 18; O2SAT 98
--- NOTE | 2021-06-08 14:54 | HMH.PMPROC ---
- Procedure Date: 06/08/21 Time: 14:54 Anesthesiologist:: Kianna Nolan APRN Complications:: None Pre-procedure Diagnosis:: Degenerative disc disease lumbar spine with lumbar radiculopathy symptoms, postlaminectomy syndrome lumbar spine, chronic low back pain Post-procedure Diagnosis:: Same Indications for Procedure:: Patient is a pleasant 50-year-old white female who presents today for intrathecal pain pump refill and reprogram. She has been treated for degenerative disc disease lumbar spine with lumbar radiculopathy symptoms, postlaminectomy syndrome lumbar spine and chronic low back pain. Patient is currently on morphine at 0.5 mg/day. She reports to be having some increased sweating since having her intrathecal pain pump implanted. She says that she has always had some diaphoresis, however, has worsened somewhat since having her intrathecal pain pump implanted. She does rate her pain a 6 out of 10 and would like an increase. She is currently on Celebrex, however, is causing her to have some GI upset, with heartburn. She and I discussed stopping the medication. She is having some shocking-like sensations into her lower extremities. We also discussed starting gabapentin. She was on gabapentin in the past 800 mg 1 tablet p.o. 3 times daily. We will start her back on this medicine. Patient I did discuss that she continues to have diaphoresis with the medication, she may need to change the medication. She says she she would like to continue with her therapy that she is on at this time. She says that if her symptoms worsen, she will contact the clinic so that we can change the medication. She would like an increase today. Darwin and drug screen are appropriate. Physical exam General: Alert and oriented x3, no acute distress, pleasant and cooperative, [on room air] Lungs: Respirations even and unlabored, symmetrical chest expansion Eyes: PERRL Musculoskeletal: Flexion and extension of lumbar spine somewhat guarded secondary to pain, deep tendon reflexes normal, strength in upper and lower extremities [5/5], [abnormal gait noted] Neurological: Speech clear, rubber liner equal, no gross sensory deficit Procedure Details:: Informed consent was obtained and the risk and benefits of the procedure were explained to the patient. The patient was taken to the procedure room where noninvasive monitoring was placed including noninvasive blood pressure cuff and pulse oximeter. Patient's pump was interrogated. The area over the pump was cleansed with chlorhexidine as a cleansing solution. In sterile fashion the pump was accessed with a 22-gauge needle. Approximately Dr. Babin has reviewed this note and agrees with this plan of care. This note was dictated using voice recognition software and make contain errors or omissions. mls of the pump solution was removed and discarded appropriately. The pump was then refilled with 20 mL's of morphine milligrams per ml. The needle was withdrawn and a bandage was placed over the puncture site. The infusion rate was reprogrammed at morphine at 0.55 mg/day. The patient tolerated well with no complication. Plan and Disposition:: Patient has been advised to stop taking Celebrex. She is having GI upset with heartburn. We will start her back on her gabapentin 100 mg 1 tablet p.o. 3 times daily. We will see if the patient continues to have diaphoresis with the medication after an increase. We discussed changing the medication today, however, she would like to see if her symptoms improve. If her symptoms do not improve, we will need to change her medication to Dilaudid in her intrathecal pump. She is in agreement. She will contact the clinic if her symptoms change. Patient has been instructed to contact the clinic with any concerns before the next appointment. Dr. Babin has reviewed this note and agrees with this plan of care. This note was dictated using voice recognition software and make contain e
[2021-06-08 14:57] VITALS: BP 147/84; PULSE 85; RESP 18; O2SAT 95
== END 2021-06-08 14:58 | disposition home or self-care (01) ==
LOC: SC.PAINP 14:06
PROVIDERS: PCP Nurse Practitioner Family; Visit Provider Clinical Nurse Specialist Family Health
DX: M51.16 Intervertebral disc disorders with radiculopathy, lumbar region (principal); M96.1 Postlaminectomy syndrome, not elsewhere classified; G89.29 Other chronic pain; E07.9 Disorder of thyroid, unspecified; E78.5 Hyperlipidemia, unspecified; I10 Essential (primary) hypertension; M19.90 Unspecified osteoarthritis, unspecified site; Z88.6 Allergy status to analgesic agent
CPT/HCPCS: 62370

== ENCOUNTER 2021-06-29 12:59 | Day surgery (SDC) | payer BC, SELFPAY ==
[2021-06-29 13:05] VITALS: BP 126/84; PULSE 82; RESP 20; O2SAT 98; BMI 43.9
--- NOTE | 2021-06-29 13:07 | P.PCN_ITS ---
- Procedure Date: 06/29/21 Time: 13:10 Anesthesiologist:: Fawn Ibarra APRN Complications:: None Pre-procedure Diagnosis:: Disc disease lumbar spine with lumbar radiculopathy symptoms, postlaminectomy syndrome lumbar spine, chronic low back pain Post-procedure Diagnosis:: Same Indications for Procedure:: Patient is a pleasant 50-year-old white female who presents today for intrath ecal pain pump refill. The patient is currently being treated for degenerative disc disease of the lumbar spine with lumbar radiculopathy type symptoms, chronic low back pain. A 3 out of 10. On June 08, 2021 the patient's intrathecal pain pump was refilled with morphine 5 mg/mL and her dosage was increased to 0.55 mg/day. At that time her reservoir volume was not altered to 20 mL it was left with the remaining volume in the pump which was 7.52 mL of morphine. Therefore the patient was scheduled for an intrathecal pain pump refill today. Upon accessing her intrathecal pain pump it was determined that she had a volume of 16 left in her pump with a telemetry report of 5 mL. This is how we determined that her last intrathecal pain pump refill her volume was not changed to 20 mL. The patient today is happy with the results of her intrathecal pain pump. She states that the dosage increase at her last visit did help with her discomfort. She is not requesting any further adjustments in her dosing today. Procedure Details:: Informed consent was obtained and the risk and benefits of the procedure were explained to the patient. The patient was taken to the procedure room where noninvasive monitoring was placed including noninvasive blood pressure cuff and pulse oximeter. Patient's pump was interrogated. The area over the pump was cleansed with chlorhexidine as a cleansing solution. In sterile fashion the pump was accessed with a 22-gauge needle. Approximately [16] mls of the pump solution was removed and discarded appropriately. The pump was then refilled with 20 mL's of morphine 5 mg/mL. The needle was withdrawn and a bandage was placed over the puncture site. The infusion rate was reprogrammed at continued at 0.55 mg/day. The patient tolerated well with no complication. Plan and Disposition:: We will follow up with the patient at her next intrathecal pain pump refill. She is welcome to contact the clinic if she has any questions or concerns prior to that appointment date. The end
[2021-06-29 13:11] VITALS: BP 142/92; PULSE 93; RESP 18; O2SAT 95
[2021-06-29 13:13] VITALS: BP 142/92; PULSE 82; RESP 18; O2SAT 97
[2021-06-29 13:27] VITALS: BP 135/87; PULSE 78; RESP 18; O2SAT 98
== END 2021-06-29 13:28 | disposition home or self-care (01) ==
LOC: SC.PAINP 12:59
PROVIDERS: PCP Nurse Practitioner Family; Visit Provider Family Medicine
DX: M96.1 Postlaminectomy syndrome, not elsewhere classified (principal); M51.16 Intervertebral disc disorders with radiculopathy, lumbar region; G89.29 Other chronic pain; Z45.1 Encounter for adjustment and management of infusion pump
CPT/HCPCS: 95991

== ENCOUNTER 2021-10-19 12:56 | Day surgery (SDC) | payer BC, SELFPAY ==
[2021-10-19 13:05] VITALS: BP 157/99; PULSE 83; RESP 18; TEMP 35.7; O2SAT 100; BMI 38.2
--- NOTE | 2021-10-19 13:07 | HMH.PMPROC ---
- Procedure Date: 10/19/21 Time: 13:07 Anesthesiologist:: Kianna Nolan APRN Complications:: None Pre-procedure Diagnosis:: Degenerative disc disease lumbar spine with lumbar radiculopathy symptoms Post-procedure Diagnosis:: Same Indications for Procedure:: Patient is a pleasant [ ] who presents today for intrathecal pain pump 51-year-old white female [and reprogram]. The patient is being treated for chronic low back pain. Patient is having worsening neck pain at this time, however. She has seen Dr. De León in the past who did refer the patient to us for injective therapy. Unfortunately injections have not helped the patient. She says her neck pain is worsening and causing her to have vertigo-like symptoms. She has had a complete work-up and has been negative for vertigo. Her primary care provider has advised her is likely coming from the bulging disks in her cervical spine. She has not had any recent imaging. She has tried physical therapy in the past for greater than 6 weeks with minimal relief as well as injective therapy with minimal relief. Anti-inflammatories have not helped the patient. Patient would like to be referred back to Dr. De León for further evaluation of worsening neck pain with radiation into bilateral upper extremities. We will need to obtain an updated MRI before referring the patient. They will not see the patient until she has had imaging within the last year. She will also need scheduled to meet with the [facility] community service representative for emptying and refilling pump through the procedure.. Patient rates pain a 6 out of 10. Drug screen is appropriate. Darwin [ ] has been reviewed and is appropriate. The patient does say that she is having nausea with her PTC device. She is currently on a dose of morphine at 0.55 mg/day and a PTC of 0.05 mg up to 4 times daily. Physical exam General: Alert and oriented x3, no acute distress, pleasant and cooperative, [on room air] Lungs: Respirations even and unlabored, symmetrical chest expansion Eyes: PERRL Musculoskeletal: Flexion and extension of lumbar [spine] somewhat guarded secondary to pain, [antalgic gait noted] Neurological: Speech clear, no gross sensory deficit Procedure Details:: Informed consent was obtained and the risk and benefits of the procedure were explained to the patient. The patient was taken to the procedure room where noninvasive monitoring was placed including noninvasive blood pressure cuff and pulse oximeter. Patient's pump was interrogated. The area over the pump was cleansed with chlorhexidine as a cleansing solution. In sterile fashion the pump was accessed with a 22-gauge needle. Approximately 8 mls of the pump solution was removed and discarded appropriately. The pump was then refilled with 20 mL's of morphine 5 mg per mill. The needle was withdrawn and a bandage was placed over the puncture site. The infusion rate was reprogrammed at morphine at 0.6 mg/day, PTC decreased to 0.04 mg up to 4 times daily. The patient tolerated well with no complication. Plan and Disposition:: We will order an MRI of the patient cervical spine. Her symptoms are changing with worsening pain to her cervical spine and with numbness and tingling bilateral upper extremities. Injections have not helped the patient. She is seeing Dr. De León in the past. We will refer the patient back to Dr. De León. We will see the patient back in the clinic at the next intrathecal refill. Patient has been instructed to contact the clinic with any concerns before the next appointment. Dr. Babin has reviewed this note and agrees with this plan of care. This note was dictated using voice recognition software and make contain errors or omissions.
[2021-10-19 13:14] VITALS: PULSE 82; RESP 18; O2SAT 95
[2021-10-19 13:15] VITALS: PULSE 81; RESP 18; O2SAT 95
[2021-10-19 13:40] VITALS: BP 150/95; PULSE 84; RESP 20; O2SAT 99
[2021-10-19 18:33] LABS: Barbiturates Screen,Urine Negative ng/ml (<200); Benzodiazepines Screen,Urine Negative ng/ml (<200)
[2021-10-19 18:34] LABS: Amphetamine/Metha Screen,Urine Negative ng/ml (<1000)
[2021-10-19 18:35] LABS: Cannabinoid Screen,Urine Negative ng/ml (<50); Methadone Screen,Urine Negative ng/ml (<300)
[2021-10-19 18:36] LABS: Cocaine Screen,Urine Negative ng/ml (<300); Opiate Screen,Urine Positive ng/ml (<300)
[2021-10-19 18:37] LABS: Phencyclidine Screen,Urine Negative ng/ml (<25)
[2021-11-09 07:11] LABS: Codeine Negative (Cutoff=100); Hydrocodone Negative (Cutoff=100); Hydromorphone Negative (Cutoff=100); Morphine Positive (.); Opiates Positive (.)
== END 2021-10-19 13:40 | disposition home or self-care (01) ==
LOC: SC.PAINP 12:57
PROVIDERS: PCP Nurse Practitioner Family; Visit Provider Clinical Nurse Specialist Family Health
DX: M51.16 Intervertebral disc disorders with radiculopathy, lumbar region (principal); Z45.1 Encounter for adjustment and management of infusion pump; Z79.891 Long term (current) use of opiate analgesic
CPT/HCPCS: 62370; 80305; 80361; 80365; G0480

== ENCOUNTER → 2022-06-07 14:11 | Outpatient (POV) | payer BC, SELFPAY ==
[2022-06-07 14:49] VITALS: BP 134/87; PULSE 72; RESP 20; TEMP 36.4; O2SAT 100; BMI 37.4
--- NOTE | 2022-06-07 15:34 | HMH.PMPROC ---
- Procedure Date: 06/07/22 Time: 15:00 Anesthesiologist:: MITCH Gonzalez Complications:: None Pre-procedure Diagnosis:: Degenerative disc disease of lumbar spine with lumbar radiculopathy symptoms Post-procedure Diagnosis:: SAME Indications for Procedure:: Patient is a pleasant 51-year-old female who presents today for intrathecal pain pump adjustment. The patient is being treated for degenerative disc disease of lumbar spine with lumbar radiculopathy symptoms. Patient is currently being managed with morphine 0.6 mg/day. Patient states that she has been having side effects for some time now. She states that this started when she had only had the pump for 3 months. She states that they had mentioned about switching her medication prior but at that time she did not want to. Those include dizziness, sweating, nausea, vomiting. Patient has had a work-up by her primary care doctor with no significant findings that would be the cause of her symptoms. She would like to have her pump removed. patient rates pain a 6 out of 10. Drug screen is appropriate. Darwin [id number] has been reviewed and is appropriate. Physical exam General: Alert and oriented x3, no acute distress, pleasant and cooperative Lungs: Respirations even and unlabored, symmetrical chest expansion Eyes: PERRL Musculoskeletal: Flexion and extension of cervical and lumbar [spine] somewhat guarded secondary to pain, [antalgic gait noted] Neurological: Speech clear, no gross sensory deficit Procedure Details:: Informed consent was obtained and the risk and benefits of the procedure were explained to the patient. Patient was taken to the procedure room where noninvasive monitoring was placed including noninvasive blood pressure cuff and pulse oximeter. Patient's pump was interrogated and was reprogrammed to morphine 0.3 mg/day. The patient tolerated the procedure well with no complications. Plan and Disposition:: I have discussed with the patient at length regarding her pain pump. Her pain pump was implanted on December 2020. At today's visit we will decrease the patients dose by 50%. Her new medication dose will be morphine 0.3 mg/day. She will follow-up in 1 week to completely turn off her pain pump. I have discussed with her about seeing how she feels once her pump is off and reevaluating her symptoms as to whether or not the pump was causing them. I have also discussed with the patient regarding switching her medication. At her next visit we will discuss whether or not if she still just to have her pump removed. Patient will return to clinic in 1 week for adjustment Patient has been instructed to contact the clinic with any concerns before the next appointment. Dr. Babin has reviewed this note and agrees with this plan of care. This note was dictated using voice recognition software and make contain errors or omissions.
== END ==
PROVIDERS: Visit Provider Student in an Organized Health Care Education/Training Program
DX: M51.16 Intervertebral disc disorders with radiculopathy, lumbar region (principal)
CPT/HCPCS: 62368; 99212; G0463

== ENCOUNTER → 2022-06-14 14:13 | Outpatient (POV) | payer BC, SELFPAY ==
--- NOTE | 2022-06-14 15:09 | HMH.PAINSOAP ---
[facility] Pain Management SOAP Note Subjective:: Patient is a pleasant 51-year-old female who presents today for intrathecal pain pump adjustment and follow-up. Patient is being treated for degenerative disc disease of lumbar spine with lumbar radiculopathy symptoms she is currently being managed with morphine 0.3 mg/day. Patient states her previous side effects of nausea and vomiting have subsided. She states her last episode of vomiting was last Tuesday when we decreased her medication dose by 50%. Last week she had mentioned about removing her pump. She stated shes had episodes of dizziness, sweating, nausea, vomiting for majority of the time that shes had her pump. Patient had been seen by her primary care doctor with no significant findings to explain the symptoms she was experiencing. At today's visit she is rating her pain a 6 out of 10. She states her pain is in her low back and describes it as a dull ache. She would still like to decrease her pump to 0 at today's visit and plan for removal. Her Darwin is [id number]. It has been reviewed and is appropriate. Review of Systems: General: No recent weight changes, no fever, no sleep disturbances Respiratory: No cough, no shortness of air, no recurring pulmonary infections Cardiovascular/peripheral vascular: No chest pain, no palpitations, no edema, no shortness of breath Gastrointestinal: No new onset incontinence, normal bowel movements reported Genitourinary: No new onset incontinence Musculoskeletal: Low back pain Psychiatric: [Normal mood/affect] Neurological: [Denies weakness in extremities], [denies balance issues] Objective:: Physical Exam: General: Alert and oriented x3, no acute distress, pleasant and cooperative Lungs: Respirations even and unlabored, symmetrical chest expansion Eyes: PERRL Musculoskeletal: Flexion and extension of lumbar [spine] somewhat guarded secondary to pain, [antalgic gait noted] Neurological: Speech clear, no gross sensory deficit Assessment:: Degenerative disc disease of lumbar spine with lumbar radiculopathy symptoms Plan:: Patient's nausea and vomiting has subsided since her last follow-up. She states her pain remains consistent at a 6 out of 10 in her low back. Her pump was placed in December 2020. I have discussed with her regarding switching medications such as as bupivacaine. At this time she would still like to proceed forward for having it removed. At today's visit we will decrease her dose to 0. Patient will follow-up in 1 week. We will reevaluate her symptoms at her visit next week and discuss possibly switching her medication instead of removing her pump. Patient will return to clinic in 1 week for follow-up. Patient has been instructed to contact the clinic with any concerns before the next appointment. Dr. Babin has reviewed this note and agrees with this plan of care. This note was dictated using voice recognition software and make contain errors or omissions. [facility] History I have reviewed the patient's past medical history: Yes Medical History: Reports:: Aneurysm, Diabetes Mellitus Type 2, Hyperlipidemia, Hypertension Denies:: Cancer, Diabetes Mellitus Type 1, Internal Pacemaker, MRSA, Seizures *Have you ever received a pneumonia vaccine?: Yes *Have you received a flu vaccine this season?: Yes Other Medical History: Reports: Arthritis, Hypothyroidism, Thyroid Disease. Denies: Blood Transfusion Reaction Other Surgeries: Yes: Appendectomy, Cholecystectomy, Hysterectomy-Total, Tubal Ligation, Other (spinal fusion, pain pump implant). No: Pacemaker Amputation: No Fractures: No - *Social History Smoking Status: Never smoker Alcohol Intake: never Substance Use Type: marijuana *Occupational Status:: other Housing: house Household Members: spouse *Travel in the last 8 weeks: [facility] Family Hx:: Unable to obtain
[2022-06-14 15:15] VITALS: BP 131/74; PULSE 62; RESP 20; TEMP 36.8; O2SAT 99; BMI 38.9
== END ==
PROVIDERS: PCP Nurse Practitioner Family; Visit Provider Student in an Organized Health Care Education/Training Program
DX: M51.16 Intervertebral disc disorders with radiculopathy, lumbar region (principal)
CPT/HCPCS: 99212; G0463

== ENCOUNTER → 2022-06-21 14:39 | Outpatient (POV) | payer BC, SELFPAY ==
[2022-06-21 15:13] VITALS: BP 150/91; PULSE 83; RESP 18; TEMP 36.4; O2SAT 97; BMI 38.9
--- NOTE | 2022-06-21 15:47 | HMH.PAINSOAP ---
[facility] Pain Management SOAP Note Subjective:: Patient is a pleasant 51-year-old female who presents today for follow-up. Patient is currently being treated for degenerative disc disease of lumbar spine with lumbar radiculopathy symptoms. Patient currently has an intrathecal pain pump that is turned off at this time. We have been seeing this patient for the last 3 weeks because she is wanting to get her pain pump explanted. She states that she was having nausea and vomiting since placement of the intrathecal pain pump. When we had completely turn off her pump, patient states that her symptoms have subsided. Today, patient states that her pain is about the same around 6 out of 10. She states that she still wants to get her intrathecal pain pump turned off. Most of her pain is around the catheter site. When she gets her intrathecal pain pump taken out, she also wants the catheter out as well. Review of Systems: General: No recent weight changes, no fever, no sleep disturbances Respiratory: No cough, no shortness of air, no recurring pulmonary infections Cardiovascular/peripheral vascular: No chest pain, no palpitations, no edema, no shortness of breath Gastrointestinal: No new onset incontinence, normal bowel movements reported Genitourinary: No new onset incontinence Musculoskeletal: Low back pain Psychiatric: [Normal mood/affect] Neurological: [Denies weakness in extremities], [denies balance issues] Objective:: Physical Exam: General: Alert and oriented x3, no acute distress, pleasant and cooperative Lungs: Respirations even and unlabored, symmetrical chest expansion Eyes: PERRL Musculoskeletal: Flexion and extension of lumbar [spine] somewhat guarded secondary to pain, [antalgic gait noted] Neurological: Speech clear, no gross sensory deficit Assessment:: Degenerative disease of lumbar spine with lumbar radiculopathy symptoms Plan:: Patient was being managed with intrathecal pain pump morphine 0.6 mg/day. Patient states that she was having increasing nausea and vomiting. States that the symptoms have subsided since starting of her intrathecal pain pump. She wants to proceed with explantation of her pain pump. She is also requesting to get her catheter out as well. We will schedule this patient for her explant. Patient has been instructed to contact the clinic with any concerns before the next appointment. Dr. Babin has reviewed this note and agrees with this plan of care. This note was dictated using voice recognition software and make contain errors or omissions. [facility] History Medical History: Reports:: Aneurysm, Diabetes Mellitus Type 2, Hyperlipidemia, Hypertension Denies:: Cancer, Diabetes Mellitus Type 1, Internal Pacemaker, MRSA, Seizures *Have you ever received a pneumonia vaccine?: No *Have you received a flu vaccine this season?: Yes Other Medical History: Reports: Arthritis, Hypothyroidism, Thyroid Disease. Denies: Blood Transfusion Reaction Other Surgeries: Yes: Appendectomy, Cholecystectomy, Hysterectomy-Total, Tubal Ligation, Other (spinal fusion, pain pump implant). No: Pacemaker Amputation: No Fractures: No - *Social History Smoking Status: Never smoker Alcohol Intake: never Substance Use Type: marijuana *Occupational Status:: other Housing: house Household Members: spouse *Travel in the last 8 weeks: None Family Hx:: Unable to obtain
== END ==
PROVIDERS: PCP Nurse Practitioner Family; Visit Provider Student in an Organized Health Care Education/Training Program
DX: M51.16 Intervertebral disc disorders with radiculopathy, lumbar region (principal); M19.90 Unspecified osteoarthritis, unspecified site
CPT/HCPCS: 99212; G0463

== ENCOUNTER → 2022-08-05 13:18 | Outpatient (CLI) | payer BC, SELFPAY ==
[2022-08-05 14:37] LABS: Basophils # 0.1 K/mm3 (0-0.2); Basophils % 0.7 % (0.1-2.0); Eosinophils # 0.1 K/mm3 (0.0-0.4); Eosinophils % 0.9 % (0.1-12.0); Hematocrit 45.7 % (37.0-47.0); Hemoglobin 14.7 g/dL (12.2-16.2); Lymphocytes # 1.9 K/mm3 (0.7-4.5); Lymphocytes % 19.8 % (10-50); Mean Corpuscular HGB Conc 32.1 g/dL (31.8-35.4); Mean Corpuscular Volume 90.2 fl (81-99); Mean Platelet Volume 8.6 fl (7.4-10.4); Monocytes # 0.5 K/mm3 (0.1-1.0); Monocytes % 5.7 % (1.7-9.3); Neutrophils # 6.9 K/mm3 (1.8-7.8); Neutrophils % 72.9 % (37.0-80.0); Platelet Count 325 K/mm3 (142-424); Red Blood Count 5.06 M/mm3 (4.20-5.40); Red Cell Distribution Width 14.1 % (11.5-17.5); White Blood Count 9.4 K/mm3 (4.8-10.8)
[2022-08-05 15:17] LABS: Anion Gap 8.7 mEq/L (5-15); Blood Urea Nitrogen 11 mg/dl (7-17); Calcium 8.8 mg/dl (8.4-10.2); Carbon Dioxide 31 mmol/L (22.0-30.0); Chloride 100 mmol/L (98-107); Estimated Glomerular Filt Rate 106 ml/min (>60); GFR (African American) 129 ML/MIN (>60); Glucose 98 mg/dl (74-100); Potassium 4.7 mmoL/L (3.5-5.1); Sodium 135 mmol/L (136-145)
== END ==
PROVIDERS: PCP Nurse Practitioner Family; Visit Provider Anesthesiology
DX: Z01.812 Encounter for preprocedural laboratory examination (principal); Z20.822 Contact with and (suspected) exposure to COVID-19
CPT/HCPCS: 36415; 80048; 85025; C9803; U0003; U0005

== ENCOUNTER 2022-08-06 09:24 | Day surgery (SDC) | payer BC, SELFPAY ==
[2022-08-03 14:10] VITALS: BMI 38.2
--- NOTE | 2022-08-06 10:32 | P.PN_ITS ---
[facility] PFS Medical History Aortic aneurysm Appendicitis Carpal tunnel syndrome Diabetes mellitus, type 2 Fusion of lumbar spine Gallbladder disease History of gastroesophageal reflux (GERD) Hypothyroid Migraine Osteoarthritis Surgical History History of appendectomy History of cholecystectomy History of hysterectomy Family History Brother Stroke Mother Stroke Sister Stroke Sister Stroke Other Family history of myocardial infarction Social History Smoking Status: Never smoker second hand exposure: No alcohol intake: never substance use type: marijuana current occupational status: employed and other Travel in the last 8 weeks: None household members: spouse housing: house marital status: education level: high school service: No alf: No current occupation: [employer] current occupational exposures/hazards: No caffeine: Yes special danial needs: No agree to transfusion: No do you feel safe at home: Yes victim of physical abuse: No victim of emotional abuse: No victim of sexual abuse: No would you like helpful sources: No [facility] Anesthesia Checklist Patient Identification Patient Identification: Arm Band and Verbal (Name & ) Structural Data Admitted From: Home Planned Operative Procedure/s: Pain pump explant Consent for Planned Operative Procedure(s) Verified: Yes NPO Status Verified Time NPO: 00:00 Additional verifications Anesthesia Reactions: No Hx Blood Transfusions: No Blood Transfusion Reaction: No Airway Assessment C-Spine Mobility Assessed: Yes TMJ Mobility Assessed: Yes Dentition: Edentulous Neurological Assessment Level of Consciousness: Awake Hx Seizures: No Numbness or tingling in extremities: No Anesthesia Plan Anesthesia Risk discussed: Yes Anesthesia Plan: Verified ASA Class: III Anesthesia Type: MAC
[2022-08-06 10:42] VITALS: BP 120/65; PULSE 71; RESP 16; TEMP 36.6; O2SAT 100
[2022-08-06 10:48] LABS: POC Glucose,Bedside 104 (70-110)
--- NOTE | 2022-08-06 14:08 | EXP.OP.NOTE ---
Date of procedure: 08/06/22 Pre-op Diagnosis:: Nonfunctioning intrathecal pain pump with postlaminectomy syndrome lumbar spine Post-op Diagnosis:: Same Procedure performed:: Explant of intrathecal pain pump and catheter Surgeon:: Danial Babin MD [employer]ER:: Padmini Whitmore Anesthesia: MAC and other Estimated blood loss (mL): 5 Clinical Note:: This patient is a pleasant 51-year-old white female who has a pain pump which is currently turned off. She has not gotten much benefit from her pain pump. Her catheter anchor is causing her increasing back pain. We will remove the pain pump and catheter and anchor today. Operative findings:: none Operative note:: Informed consent was obtained risk and benefits of the procedure were explained to the patient. Patient was taken the procedure room. She was placed prone on the procedure table. She was prepped and draped in sterile fashion. The C-arm fluoroscopy was used to view the catheter anchor and pain pump reservoir. The skin and subtenons tissues were anesthetized using lidocaine. I made an incision over the pain pump reservoir. I explained to the pain pump reservoir and cut the catheter. We then made an incision over the catheter anchor. I dissected out the catheter anchors and catheter. We pulled the whole segment of the catheter out of the spine and from the reservoir pocket. Catheter was removed intact. Both incisions were irrigated with antibiotic solution. Both incisions were then closed with 2-0 Vicryl followed by 4-0 nylon. A wound VAC was placed over both incisions. The patient was placed in an abdominal binder taken recovery stable condition. Patient tolerated the procedure well with no complications. Plan and disposition: We will follow-up with her in 3 weeks for suture removal. If she has any problems questions to call us back in the pain clinic. She is to continue wearing abdominal binder and I did caution her against the risk of post dural puncture headache with removal of the catheter. If she does not get a headache we could possibly do a lumbar epidural blood patch. Condition: stable Disposition: PACU Complications:: None
[2022-08-06 14:10] VITALS: BP 138/86; PULSE 64; RESP 16; TEMP 36.5; O2SAT 97
[2022-08-06 14:20] VITALS: BP 143/74; PULSE 63; RESP 16; O2SAT 100
[2022-08-06 14:35] VITALS: BP 141/73; PULSE 63; RESP 16; O2SAT 100
== END 2022-08-06 14:40 | disposition home or self-care (01) ==
PROVIDERS: PCP Nurse Practitioner Family; Visit Provider Anesthesiology
PROC: (CPT 62355; principal; 2022-08-06 11:00)
DX: T85.615A Breakdown (mechanical) of other nervous system device, implant or graft, initial encounter (principal); M96.1 Postlaminectomy syndrome, not elsewhere classified; E11.9 Type 2 diabetes mellitus without complications; Z79.899 Other long term (current) drug therapy
CPT/HCPCS: 62355; 62365; 82962; 96374; J2405

== ENCOUNTER → 2022-08-12 11:43 | Outpatient (POV) | payer BC, SELFPAY ==
[2022-08-12 12:12] VITALS: BP 168/103; PULSE 95; RESP 18; TEMP 37.3; O2SAT 93; BMI 38.2
--- NOTE | 2022-08-12 12:12 | EXP.PAIN.SOA ---
[facility] Pain Management SOAP Note Subjective:: Patient is a pleasant 51-year-old who presents today for follow-up of explanted nonfunctioning intrathecal pain pump on 08/06/2022. We are currently treating the patient for degenerative disc disease of lumbar spine with lumbar radiculopathy symptoms, nonfunctioning intrathecal pain pump with postlaminectomy syndrome lumbar spine. Today the patient rates her pain a 6 out of 10. She primarily states the pain is in her low back that radiates into her lower extremities. Patient denies any problems following her surgery. She does state the only issue that she has had is that she had her allergies flareup on Tuesday morning. She states she has a lot of sinus issues including a headache. Previously the patient had significant nausea and vomiting with her intrathecal pain medication. We did turn the pump completely off and her symptoms did resolve. Patient is prescribed a compounding cream that she states does help provide some improvement of her symptoms. Her Darwin is [id number]. Its been reviewed and appropriate. Review of Systems: General: No recent weight changes, no fever, no sleep disturbances Respiratory: No cough, no shortness of air, no recurring pulmonary infections Cardiovascular/peripheral vascular: No chest pain, no palpitations, no edema, no shortness of breath Gastrointestinal: No new onset incontinence, normal bowel movements reported Genitourinary: No new onset incontinence Musculoskeletal: Low back pain Psychiatric: [Normal mood/affect] Neurological: [Denies weakness in extremities], [denies balance issues] Objective:: Physical Exam: General: Alert and oriented x3, no acute distress, pleasant and cooperative Lungs: Respirations even and unlabored, symmetrical chest expansion Eyes: PERRL Musculoskeletal: Flexion and extension of lumbar [spine] somewhat guarded secondary to pain, [antalgic gait noted] Neurological: Speech clear, no gross sensory deficit Skin: Incision site clean, dry, well approximated with minimal erythema Assessment:: Degenerative disc disease of lumbar spine with lumbar radiculopathy symptoms, nonfunctioning intrathecal pain pump with postlaminectomy syndrome of lumbar spine Plan:: Patient continues to have some low back pain however patient denies any problems following her removal of her intrathecal pain pump. Patient is currently experiencing some sinus issues. At today's visit her incisions are clean, dry, well approximated with minimal erythema at the incision sites. We will follow-up with the patient in 2 weeks. We will plan on removing her sutures at our next follow-up visit. Patient will return to clinic in 2 weeks for follow-up, reevaluation of symptoms and suture removal. Patient has been instructed to contact the clinic with any concerns before the next appointment. Dr. Babin has reviewed this note and agrees with this plan of care. This note was dictated using voice recognition software and make contain errors or omissions. [facility] Medical History Aortic aneurysm Appendicitis Carpal tunnel syndrome Diabetes mellitus, type 2 Fusion of lumbar spine Gallbladder disease History of gastroesophageal reflux (GERD) Hypothyroid Migraine Osteoarthritis Surgical History History of appendectomy History of cholecystectomy History of hysterectomy Family History Brother Stroke Mother Stroke Sister Stroke Sister Stroke Other Family history of myocardial infarction Social History Smoking Status: Never smoker second hand exposure: No alcohol intake: never substance use type: marijuana current occupational status: employed and other Travel in the last 8 weeks: None household members: spouse housing: house marital sta
== END ==
PROVIDERS: PCP Nurse Practitioner Family; Visit Provider Nurse Practitioner Family
DX: M51.16 Intervertebral disc disorders with radiculopathy, lumbar region (principal); M96.1 Postlaminectomy syndrome, not elsewhere classified; Z79.899 Other long term (current) drug therapy
CPT/HCPCS: 99212; G0463

== ENCOUNTER → 2022-08-25 11:27 | Outpatient (POV) | payer BC, SELFPAY ==
--- NOTE | 2022-08-25 12:03 | EXP.PAIN.SOA ---
[facility] Pain Management SOAP Note Subjective:: Patient is a pleasant 51-year-old female who presents today for follow-up of explanted nonfunctioning intrathecal pain pump on 08/06/2022. We are currently treating the patient for degenerative disc disease of lumbar spine with lumbar radiculopathy symptoms, nonfunctioning intrathecal pain pump with postlaminectomy syndrome of the lumbar spine. Today she rates her pain a 5 out of 10. She states pain is primarily in her low back that radiates into her lower extremities. Patient denies any new trauma or injury. She denies any change in location or type of pain she experiences. Patient states she has not had any problems following her surgery. Previously the patient had significant intolerance of nausea vomiting and dizziness related to her intrathecal pain medication. We did at intervals decrease her pump to 50% and then completely off and her symptoms did resolve. Patient does currently use a compounding cream that provides some relief of her symptoms. She also uses [id number] Tylenol arthritis, muscle relaxers and gabapentin as needed. Patient denies any side effects from these medications. She states these medications do help manage her pain symptoms. Her Darwin is [id number]. It has been reviewed and appropriate. Review of Systems: General: No recent weight changes, no fever, no sleep disturbances Respiratory: No cough, no shortness of air, no recurring pulmonary infections Cardiovascular/peripheral vascular: No chest pain, no palpitations, no edema, no shortness of breath Gastrointestinal: No new onset incontinence, normal bowel movements reported Genitourinary: No new onset incontinence Musculoskeletal: Low back pain Psychiatric: [Normal mood/affect] Neurological: [Denies weakness in extremities], [denies balance issues] Objective:: Physical Exam: General: Alert and oriented x3, no acute distress, pleasant and cooperative Lungs: Respirations even and unlabored, symmetrical chest expansion Eyes: PERRL Musculoskeletal: Flexion and extension of lumbar [spine] somewhat guarded secondary to pain, [antalgic gait noted] Neurological: Speech clear, no gross sensory deficit Assessment:: Degenerative disc disease lumbar spine with lumbar radiculopathy symptoms, nonfunctioning intrathecal pain pump with postlaminectomy syndrome of the lumbar spine Plan:: Patient continues to have pain in her low back with some radiating symptoms into her bilateral lower extremities however she is managed well with her current medication regimen. At today's visit her incision sites are clean, dry, well approximated with mild erythema. Patient has Dermabond and Steri-Strips intact on her incision site. Patient is able to return to work on light duty due to the continued restrictions of minimal bending, lifting, twisting for the next month until her incision site is completely healed. We will follow-up with the patient in 1 month. The patient will return to clinic in 1 month for reevaluation of symptoms and follow-up. Patient has been instructed to contact the clinic with any concerns before the next appointment. Dr. Babin has reviewed this note and agrees with this plan of care. This note was dictated using voice recognition software and make contain errors or omissions. [facility] Medical History Aortic aneurysm Appendicitis Carpal tunnel syndrome Diabetes mellitus, type 2 Fusion of lumbar spine Gallbladder disease History of gastroesophageal reflux (GERD) Hypothyroid Migraine Osteoarthritis Surgical History History of appendectomy History of cholecystectomy History of hysterectomy Family History Brother Stroke Mother Stroke Sister Stroke Sister Stroke Other Family history of myocardial infarction Social History (Reviewed 08/06/22 @
[2022-08-25 12:06] VITALS: BP 136/90; PULSE 80; RESP 18; TEMP 36.8; O2SAT 99; BMI 38.2
== END ==
PROVIDERS: PCP Nurse Practitioner Family; Visit Provider Nurse Practitioner Family
DX: M51.16 Intervertebral disc disorders with radiculopathy, lumbar region (principal); M96.1 Postlaminectomy syndrome, not elsewhere classified; T85.615A Breakdown (mechanical) of other nervous system device, implant or graft, initial encounter
CPT/HCPCS: 99213; G0463

== ENCOUNTER 2024-01-19 13:00 | Outpatient (RCR) | payer BC, SELFPAY | END 2024-02-22 14:37 | disposition home or self-care (01) | LOC: PT 13:00 | PROVIDERS: PCP Nurse Practitioner Family; Visit Provider Orthopaedic Surgery Adult Reconstructive Orthopaedic Surgery | DX: M25.561 Pain in right knee (principal); S83.241A Other tear of medial meniscus, current injury, right knee, initial encounter | CPT/HCPCS: 97010; 97014; 97035; 97110; 97116; 97163; 97164; 97530; G0283 ==